=== PATIENT | female | born 1935 | race Caucasian/White ===

== ENCOUNTER → 2017-05-30 10:53 | Outpatient (CLI) | payer MEDICARE, SELFPAY ==
[2017-05-30 12:18] LABS: T4 Free Direct 1.59 ng/dL (0.76-1.46); Thyroid Stim Hormone (TSH) 0.02 uIU/mL (0.358-3.74)
[2017-05-31 10:31] LABS: T3 Total - Triiodothyronine 1.37 ng/mL (0.6-1.81)
== END ==
PROVIDERS: Family Provider Family Medicine; PCP Family Medicine; Visit Provider Family Medicine
DX: E03.9 Hypothyroidism, unspecified (principal)
CPT/HCPCS: 36415; 84439; 84443; 84480

== ENCOUNTER → 2017-06-15 13:05 | Outpatient (CLI) | payer MEDICARE, SELFPAY ==
[2017-06-15 13:49] LABS: Amphetamine Urine VISTA NEGATIVE (<1000 ng/mL); Barbiturate Urine VISTA NEGATIVE (< 200 ng/mL); Benzodiazepine Urine VISTA NEGATIVE (< 200 ng/mL); Cocaine Urine VISTA NEGATIVE (< 300 ng/mL); Ecstacy Urine VISTA NEGATIVE (< 500 ng/mL); Methadone Urine VISTA NEGATIVE (< 300 ng/mL); PCP Urine VISTA NEGATIVE (< 25 ng/mL); THC Urine VISTA NEGATIVE (< 50 ng/mL); Vista UDS pH Range 6
== END ==
PROVIDERS: Family Provider Family Medicine; PCP Family Medicine; Visit Provider Anesthesiology Pain Medicine
DX: F11.20 Opioid dependence, uncomplicated (principal)
CPT/HCPCS: 80307

== ENCOUNTER → 2017-11-30 11:46 | Outpatient (CLI) | payer MEDICARE, SELFPAY ==
[2017-11-30 16:03] LABS: T4 Free Direct 1.41 ng/dL (0.76-1.46); Thyroid Stim Hormone (TSH) 0.07 uIU/mL (0.358-3.74)
== END ==
PROVIDERS: Family Provider Family Medicine; PCP Family Medicine; Visit Provider Family Medicine
DX: E03.9 Hypothyroidism, unspecified (principal)
CPT/HCPCS: 36415; 84439; 84443

== ENCOUNTER → 2017-12-27 12:11 | Outpatient (CLI) | payer MEDICARE, SELFPAY ==
[2017-12-27 12:36] LABS: Erythrocyte Sedimentation Rate 12 mm/hr (0-30)
[2017-12-27 12:39] LABS: Absolute Lymphocyte Count 1.71 X10^3/ul (0.83-4.51); Absolute Neutrophil Count 4.8 X10^3/uL (2.0-7.7); Basophil# 0.04 X10^3/uL; Basophil% 0.5 % (0-1); Eosinophil# 0.18 X10^3/uL; Eosinophils% 2.5 % (0-5); Hematocrit 40.2 % (37-47); Hemoglobin 12.5 g/dl (12.0-15.0); Lymphocyte # 1.71 X10^3/ul (4.0); Lymphocyte % 23.4 % (19-41); Mean Corp Hgb Conc 31.1 g/gl (32-36); Mean Corpuscular Hgb 25.4 pg (27.0-32.0); Mean Corpuscular Volume 81.5 fL (81-99); Monocyte# 0.59 X10^3/uL; Monocyte% 8.1 % (0-10); Neutrophil # 4.76 X10^3/uL (2.7-7.7); Neutrophil % 65.2 % (47-70); POSITIVE COUNT NO; POSITIVE DIFFERENTIAL NO; POSITIVE MORPHOLOGY NO; Platelet Count 371 K/mm3 (150-450); RBC Distribution Width CV 17.3 % (11.6-14.6); RBC Distribution Width SD 51.1 fl (35.1-43.9); Red Blood Count 4.93 M/mm3 (4.2-5.4); White Blood Count 7.3 K/mm3 (4.4-11.0)
[2017-12-27 13:00] LABS: CRP < 2.90 mg/L (0.0-3.0)
== END ==
PROVIDERS: Family Provider Family Medicine; PCP Family Medicine; Referring Provider Orthopaedic Surgery; Visit Provider Orthopaedic Surgery
DX: M25.562 Pain in left knee (principal)
CPT/HCPCS: 36415; 85025; 85652; 86140

== ENCOUNTER → 2018-01-22 07:53 | Outpatient (CLI) | payer MEDICARE, SELFPAY ==
--- NOTE | 2018-01-22 08:04 | NM_ITS ---
CLINICAL: 82-year-old female with reported history of painful left knee arthroplasty operated 2015. LIMITED 99m Tc MDP THREE PHASE BONE SCINTIGRAPHY COMPARISON: None available FINDINGS: Following the intravenous administration of 24.9 mCi of 99m Tc MDP, three-phase bone acquisitions of the knee articulations reveal: 1. The flow and immediate static blood pool acquisitions demonstrate normal arterial phase distribution of the radiopharmaceutical. Subtle increased blood pool activity is noted in the medial tibial component of the left knee prosthesis. 2. Delayed images depict persistent increased radiopharmaceutical concentration noted in the medial tibial component of the left knee arthroplasty as well as visualized increased uptake identified in the medial femoral and lateral tibial components. 3. Facilitated uptake is identified in the patellofemoral compartments of both knees and medial tibial compartment of the right knee. 4. The remaining limited skeletal structures are scintigraphically unremarkable. NM/Bone Scan Three Phase IMPRESSION: 1. The increased radiopharmaceutical concentration defined in the femoral and tibial components of the symptomatic left knee prosthesis is consistent with a high likelihood of loosening in the setting of operative intervention > 2 years prior to the current presentation. If an infectious ideology is a diagnostic consideration, correlation with labeled leukocyte imaging is recommended. 2. Degenerative arthritis is otherwise expressed in the right knee and patellofemoral compartment of the left knee (in the absence of patellar hardware placement). Electronically Signed: Alvaro Meeks DO at 10:49 EST Tel , Service support ,
== END ==
PROVIDERS: Family Provider Family Medicine; PCP Family Medicine; Referring Provider Orthopaedic Surgery; Visit Provider Orthopaedic Surgery
DX: M51.36 Other intervertebral disc degeneration, lumbar region (principal); M54.5 Low back pain
CPT/HCPCS: 78315

== ENCOUNTER → 2018-02-13 10:43 | Outpatient (CLI) | payer MEDICARE, SELFPAY ==
[2018-02-13 11:53] LABS: T4 Free Direct 1.17 ng/dL (0.76-1.46); Thyroid Stim Hormone (TSH) 0.85 uIU/mL (0.358-3.74)
[2018-02-13 12:02] LABS: T3 Total - Triiodothyronine 1.28 ng/mL (0.6-1.81)
--- OUTSIDE RECORDS SUMMARY | 2018-04-01 11:31 | XMS RPT_ITS ---
:1935 Author Organization OHIP Care Team Providers Name Role Phone Poonamlillian Amy Attending Unavailable Amy Zavala Referring Unavailable Amy Zavala Consulting Unavailable Malys, Cristal Attending Unavailable Malys, Cristal Primary Care Unavailable Basali, Ayman Attending Unavailable Basali, Ayman Referring Unavailable Malys, Cristal Primary Care Unavailable Malys, Cristal Attending Unavailable Malys, Cristal Primary Care Unavailable Malys, Cristal Attending Unavailable Malys, Cristal Primary Care Unavailable Malys, Cristal Attending Unavailable Malys, Cristal Referring Unavailable Malys, Cristal Primary Care Unavailable Adrien Jett Attending Unavailable Adrien Jett Referring Unavailable Malys, Cristal Primary Care Unavailable Adrien Jett Attending Unavailable Sukumarys, Cristal Primary Care Unavailable Adrien Jett Referring Unavailable Purpose Purpose PROBLEMS PROBLEMS DATE TYPE CONDITION / CODE ATTENDING STATUS SOURCE 02/13/2018 Unknown E03.9 - Malys, Cristal Active [facility] Hypothyroidism, Community unspecified / Hospital E03.9(ICD-10) Repository 12/27/2017 Unknown M25.562 - Pain in KnapAdrien malhotra Active [facility] left knee / Community M25.562(ICD-10) Hospital Repository 06/15/2017 Unknown F11.20 - Opioid BasaliNadja Active Andre dependence, Community uncomplicated / Hospital F11.20(ICD-10) Repository PROCEDURES PROCEDURES No Procedure Records FoundVITAL SIGNS VITAL SIGNS No Vital Signs Records FoundRESULTS RESULTS THYROID STIM HORMONE Collected: 02/13/2018 Status: F Source: ANDRE (TSH) 10:48 AM [facility] REPOSITORY TYPE CODE TESTS RESULT OUT OF RANGE REFERENCE UNITS LAB L501.9520 0.358-3.74 uIU/mL Normal TSH 0.85 Performed By: #### L501.9520, L506.0400 #### [facility] [address] [place], [address] T4 FREE DIRECT Collected: 02/13/2018 Status: F Source: ANDRE 10:48 AM [facility] REPOSITORY TYPE CODE TESTS RESULT OUT OF RANGE REFERENCE UNITS LAB L506.0400 0.76-1.46 ng/dL Normal T4 FREE 1.17 DIRECT Performed By: #### L501.9520, L506.0400 #### [facility] [address] [place], [address] T3 TOTAL - TRIIODOTHYRONINE Collected: 02/13/2018 Status: F Source: ANDRE 10:48 AM [facility] REPOSITORY TYPE CODE TESTS RESULT OUT OF RANGE REFERENCE UNITS LAB L501.9186 0.6-1.81 ng/mL Normal T3 Total 1.28 Performed By: #### L501.9186 #### [facility] [address] [place], [address] BONE SCAN THREE Observed: 01/22/2018 Status: F Source: ANDRE PHASE 8:04 AM [facility] REPOSITORY [facility] Services [address] [place] [address] Bone Scan Three Phase MR#: [id number] Acct: [id number] Name: MAURO LIEBERMAN #: [id number] : 1935 F 82 From: Alvaro Meeks DO PCP: Cristal Nguyen DO Status: REG CLI Study: Bone Scan Three Phase Date of Exam: 01/22/18 Exam# [id number] Ordering Dr: Adrien Jett DO CLINICAL: 82-year-old female with reported history of painful left knee arthroplasty operated 2014. LIMITED 99m Tc MDP THREE PHASE BONE SCINTIGRAPHY COMPARISON: None available FINDINGS: Following the intravenous administration of 24.9 mCi of 99m Tc MDP, three-phase bone acquisitions of the knee articulations reveal: 1. The flow and immediate static blood pool acquisitions demonstrate normal arterial phase distribution of the radiopharmaceutical. Subtle increased blood pool activity is noted in the medial tibial component of the left knee prosthesis. 2. Delayed images depict persistent increased radiopharmaceutical concentration noted in the medial tibial component of the left knee arthroplasty as well as visualized increased uptake identified in the medial femoral and lateral tibial components. 3. Facilitated uptake is identified in the patellofemoral compartments of both knees and medial tibial compartment of the right knee. 4. The remaining limited skeletal structures are scintigraphically unremarkable. NM/Bone Scan Three Phase IMPRESSION: 1. The increased radiopharmaceutical concentration defined in the femoral and tibial components of the symptomatic left knee prosthesis is consistent with a high likelihood of loosening in the setting of operative intervention > 2 years prior to the current presentation. If an infectious ideology is a diagnostic consideration, correlation with labeled leukocyte imaging is recommended. 2. Degenerative arthritis is otherwise expressed in the right knee and patellofemoral compartment of the left knee (in the absence of patellar hardware placement). Electronically Signed: Alvaro Meeks DO at 10:49 EST Tel , Service support , CC: Cristal Nguyen; Cristal Nguyen DO; Adrien Jett DO Extension Associate: Signed ERYTHROCYTE SED RATE Collected: 12/27/2017 Status: F Source: ANDRE 12:16 PM [facility] REPOSITORY TYPE CODE TESTS RESULT OUT OF RANGE REFERENCE UNITS LAB L102.0000 0-30 mm/hr Normal SED RATE 12 Performed By: #### L101.9900, L100.0100 #### [facility] [address] [place], [place], [address] CBC W/DIFF, AUTOMATED Collected: 12/27/2017 Status: F Source: ANDRE 12:16 PM [facility] REPOSITORY TYPE CODE TESTS RESULT OUT OF RANGE REFERENCE UNITS LAB L100.1000 4.4-11.0 K/mm3 Normal WBC 7.3 LAB L100.1200 4.2-5.4 M/mm3 Normal RBC 4.93 LAB L100.1300 12.0-15.0 g/dl Normal HGB 12.5 LAB L100.1400 37-47 % Normal HCT 40.2 LAB L100.1500 81-99 fL Normal MCV 81.5 LAB L100.1600 27.0-32.0 pg Low MCH 25.4 LAB L100.1700 32-36 g/gl Low MCHC 31.1 LAB L100.1810 11.6-14.6 % High RDW CV 17.3 LAB L100.1820 35.1-43.9 fl High RDW SD 51.1 LAB L100.1900 150-450 K/mm3 Normal PLT 371 LAB L100.2000 6.2-12.0 fl Normal MPV 9.0 LAB L100.2100 47-70 % Normal NEUT% 65.2 LAB L100.2200 19-41 % Normal LY% 23.4 LAB L100.2300 0-10 % Normal MONO% 8.1 LAB L100.2400 0-5 % Normal EO% 2.5 LAB L100.2500 0-1 % Normal BASO% 0.5 LAB L100.2550 0.0-0.9 % Normal IM GRAN % 0.300 Result Comment: IG% - Immature Granulocytes (promyelocytes, myelocytes and metamyelocytes) > 1% indicates that a LEFT SHIFT is Present. LAB L100.2620 2.0-7.7 X10 3/uL Normal Absolute Neut 4.8 LAB L100.2720 0.83-4.51 X10 3/ul Normal Absolute Lymph 1.71 Performed By: #### L101.9900, L100.0100 #### [facility] [address] [place], [place], [address] CRP Collected: 12/27/2017 Status: F Source: ANDRE 12:16 PM [facility] REPOSITORY TYPE CODE TESTS RESULT OUT OF RANGE REFERENCE UNITS LAB L501.6710 0.0-3.0 mg/L Normal < 2.90 C-REACTIVE PROT Result Comment: C-Reactive Protein (CRP) provides useful information for the diagnosis, therapy and monitoring of inflammatory processes and associated diseases. For the evaluation of Relative Risk for Cardiovascular Disease, a High Sensitivity CRP (HSCRP) should be ordered. Performed By: #### L501.6710 #### [facility] [address] [place], [address] THYROID STIM HORMONE Collected: 11/30/2017 Status: F Source: ANDRE (TSH) 11:49 AM [facility] REPOSITORY TYPE CODE TESTS RESULT OUT OF RANGE REFERENCE UNITS LAB L501.9520 0.358-3.74 uIU/mL Low TSH 0.07 Performed By: #### L501.9520, L506.0400 #### [facility] [address] [place], [address] T4 FREE DIRECT Collected: 11/30/2017 Status: F Source: ANDRE 11:49 AM [facility] REPOSITORY TYPE CODE TESTS RESULT OUT OF RANGE REFERENCE UNITS LAB L506.0400 0.76-1.46 ng/dL Normal T4 FREE 1.41 DIRECT Performed By: #### L501.9520, L506.0400 #### [facility] [address] [place], [address] URINE DRUG SCREEN Collected: 06/15/2017 Status: F Source: ANDRE (VISTA) 1:21 PM [facility] REPOSITORY Order Comment: Comments: [id number] URINE DRUG List of Drugs Taken or Suspected? UNK TYPE CODE TESTS RESULT OUT OF RANGE REFERENCE UNITS LAB L505.0075 TO BE Normal CONFIRMED Result Comment: CONFIRMATORY TESTING FOR ALL POSITIVE URINE DRUG SCREEN RESULTS WILL ONLY BE SENT OUT UPON PHYSICIAN ORDER. VISTA Urine Drug Screen methods provide only preliminary analytical test results. A more specific alternate chemical method must be used in order to obtain a confirmed analytical result. Gas chromatography/mass spectrometery (GC/MS) is the preferred confirmatory method. Clinical consideration and professional judgement should be applied to any drug of abuse test result, particularly when preliminary positive results are used. URINE TCA TESTING MUST BE ORDERED SEPARATELY. USE TEST MNEMONIC: [facility] LAB L505.5005 VISTA UDS PH 6 Normal LAB L505.5015 <1000 ng/mL AMPHETAMINES Normal NEGATIVE LAB L505.5025 < 200 ng/mL BARBITIURATES Normal NEGATIVE LAB L505.5035 < 200 ng/mL BENZODIAZIPINE Normal NEGATIVE LAB L505.5045 < 300 ng/mL COCAINE Normal NEGATIVE LAB L505.5055 < 500 ng/mL ECSTACY Normal NEGATIVE LAB L505.5065 < 300 ng/mL METHADONE Normal NEGATIVE LAB L505.5075 < 300 ng/mL OPIATES Normal NEGATIVE LAB L505.5085 < 25 ng/mL PCP Normal NEGATIVE LAB L505.5095 < 50 ng/mL THC Normal NEGATIVE Performed By: #### L505.5000 #### [facility] [address] [place], [address] MISCELLANEOUS LAB Collected: 06/15/2017 Status: F Source: ANDRE PROCEDURE 1:21 PM [facility] REPOSITORY Order Comment: Comments: [id number] URINE DRUG Test(s) Ordered: 006322 URINE DRUG TYPE CODE TESTS RESULT OUT OF RANGE REFERENCE UNITS LAB L801.1541 Normal [facility] LAB TEST Result Comment: TEST RESULT UNITS REF INTERVAL [id number] 6+Oxycodone-Bund Amphetamines, Urine Negative ng/mL Gvaove=1104 Amphetamine test includes Amphetamine and Methamphetamine. Barbiturate Negative ng/mL Rzlspt=058 Benzodiazepines Negative ng/mL Pskaiu=510 Cannabinoids Negative ng/mL Cutoff=20 Cocaine (Metabolite) Negative ng/mL Jwzaot=286 Opiates Negative ng/mL Wzkmjb=291 Opiate test includes Codeine, Morphine, Hydromorphone, Hydrocodone. Please Note: Confirmation performed by Mass Spectrometry Oxycodone/Oxymorph Positive Bsjixu=505 Test includes Oxycodone and Oxymorphone Oxycodone Positive Oxycodone (GC/MS) 454 ng/mL Fvmqzh=293 Oxymorphone Positive Oxymorphone (GC/MS) 1110 ng/mL Mcfagh=023 TESTING PERFORMED AT [facility]. ORIGINAL REPORT ON FILE IN LAB CONTAINS ADDITIONAL TEST SITE INFORMATION. Performed By: #### L801.1541 #### [facility] [address] [place], [address] THYROID STIM HORMONE Collected: 05/30/2017 Status: F Source: ANDRE (TSH) 10:54 AM [facility] REPOSITORY TYPE CODE TESTS RESULT OUT OF RANGE REFERENCE UNITS LAB L501.9520 0.358-3.74 uIU/mL Low TSH 0.02 Performed By: #### L501.9520, L506.0400 #### [facility] [place], [address] T4 FREE DIRECT Collected: 05/30/2017 Status: F Source: CHELSEA 10:54 AM [facility] REPOSITORY TYPE CODE TESTS RESULT OUT OF REFERENCE UNITS RANGE LAB L506.0400 0.76-1.46 ng/dL High T4 FREE 1.59 DIRECT Performed By: #### L501.9520, L506.0400 #### [facility] [address] [place], [address] T3 TOTAL - TRIIODOTHYRONINE Collected: 05/30/2017 Status: F Source: CHELSEA 10:54 AM [facility] REPOSITORY TYPE CODE TESTS RESULT OUT OF RANGE REFERENCE UNITS LAB L501.9186 0.6-1.81 ng/mL Normal T3 Total 1.37 Performed By: #### L501.9186 #### [facility] [address] [place], [address] ALLERGIES ALLERGIES DATE TYPE / CODE NAME / CODE REACTION SEVERITY SOURCE 07/03/2014 Drug Penicillins/ Rash Unknown [facility] Allergy/4160 [id number]( Hospital 35545(SNOMED XNORM) Repository CT) 07/03/2014 Drug codeine/F006 Upset Stomach Unknown [facility] Allergy/4160 378747(RXNOR [facility] 63426(SNOMED M) Repository CT) ENCOUNTERS ENCOUNTERS ADMIT/DISCHARGE ACCOUNT ADMITTING ENCOUNTER LOCATION SOURCE NUMBER CLASS 03/20/2018 [id number] Ambulatory Building:[facility] OHIP Practices Repository 02/13/2018 [id number] Ambulatory Christmas Andre 4 [facility] ing:LAB.FUTUR Repository E 01/22/2018 [id number] Ambulatory Christmas Andre 9 [facility] ing:NM Repository 12/27/2017 [id number] Ambulatory Andre Christmas 8 [facility] ing:LAB Repository 11/30/2017 [id number] Ambulatory Christmas Andre 9 [facility] ing:BFHLAB Repository 11/27/2017 [id number] Ambulatory Christmas Christmas 7 [facility] ing:LAB.FUTUR Repository E 06/15/2017 [id number] Ambulatory Christmas Andre 3 [facility] ing:LAB Repository 05/30/2017 [id number] Ambulatory Andre Andre 6 [facility] ing:LAB.FUTUR Repository E FUNCTIONAL STATUS FUNCTIONAL STATUS No Functional Status Records FoundEQUIPMENT EQUIPMENT No Equipment Records FoundPAYERS PAYERS ENCOUNTER GUARANTOR PAYER SUBSCRIBER SOURCE 03/20/2018 Mauro Finch Primary Mauro Finch [place] Practices SchmitzDOB: [facility] [id number] [facility] Number: [id number] [address] [place], [place] [address]ive [place], [place] [address]Lqm: (563) Date:7053-09-63Xrtb 556[address]Joy: Name:KRISSY POTTER [phone] () ()Tel: [phone] 27994[facility]Pe[facility] [phone] () [place] [id number]: 03/20/2018 Secondary Jonelle Livingston [place] Practices Insurance:Health SchmitzDOB: Repository [facility] [id number] Number: 6 Mervat [id number] [place], [place] Date:2008-05-0494471Owt: [phone] [id number] [phone] (HP) Name:RASHAD Potter [address]GB NOT USE, [place], [place] [address]AS: 03/20/2018 [facility] Insurance:Medical SchmitzDOB: Repository [facility] [id number] Number: 6 Mervat [id number] [place], [place] Date: [address]Rad: [phone] [id number] [phone] (HP) Name:[facility] Tariq [address]Qszqshkpc, [place] [id number]: 03/20/2018 [facility] Insurance:Medical SchmitzDOB: Repository [facility] [id number] Number: 6 Mervat [id number] [place], [place] Date:2015-03-06 [address]Szv: [phone] [id number] [phone] (HP) Name:[facility] Tariq [address]Drbwgbkfx, [place] [id number]: 02/13/2018 MAURO Powell [id number] Insurance:[employer] SCHMITZDOB: Community MCNUTT MEDICAREPolicy [id number] Number: Repository [address]Pnr: [phone]) [id number] [phone] (HP) Date:7742-50-10QZ [address] [place] [address]AA: 02/13/2018 Secondary NOT GIVENUNK Christmas Insurance:SELF PAY [facility] Number: Effective Repository Date:2017-12-04 01/22/2018 MAURO Finch Primary MAURO Powell [id number] Insurance:[employer] CARE SCHMITZDOB: Community MCNUTT MEDICAREPolicy [id number], [place] Number: Repository [address]Kja: [phone] [id number] [phone] (HP) Date:1232-73-23NA [address], [place] [address]KD: 01/22/2018 Secondary NOT GIVENUNK Christmas Insurance:SELF PAY [facility] Number: Effective Repository Date:2018-01-16 12/27/2017 MAURO Finch Primary MAURO Finch Andre [id number] Insurance:[employer] CARE SCHMITZDOB: Community MCNUTT MEDICAREPolicy [id number], [place] Number: Repository [id number]: (330) [id number] [phone] (HP) Date:9782-75-10RV [address] [place] [address]WU: 12/27/2017 Secondary NOT GIVENUNK Andre Insurance:SELF PAY [facility] Number: Effective Repository Date:2017-12-27 11/30/2017 MAURO Finch Primary MAURO Powell [id number] Insurance:[employer] CARE SCHMITZDOB: Community MCNUTT MEDICAREPolicy [id number], [place] Number: Repository [phone]: (330) [id number] [phone] (HP) Date:7437-70-01FT [address] [place] [address]OF: 11/30/2017 Secondary NOT GIVENUNK Christmas Insurance:SELF PAY [facility] Number: Effective Repository Date:2017-11-30 11/27/2017 JONELLE Living[place] Primary MAURO Finch Andre [id number] Insurance:[employer] CARE SCHMITZDOB: Community MCNUTT MEDICAREPolicy [id number], [place] Number: Repository [phone]: (330) [id number] [phone] (HP) Date:0514-29-48CY [address] [place] [address]MI: 11/27/2017 Secondary NOT GIVENUNK [place] Insurance:SELF PAY [facility] Number: Effective Repository Date:2017-11-27 06/15/2017 JONELLE [place] Primary MAURO M Andre [id number] Insurance:[facility]ITALPAULETTEDOB: Community MCNUTT MEDICAREPolicy [id number], [place] Number: Repository [address]Ukk: 330 [id number] [phone] (HP) Date:4945-71-45TR [address] [place] [address]VV: 06/15/2017 Secondary NOT GIVENUNK Christmas Insurance:SELF PAY [facility] Number: Effective Repository Date:2017-06-15 05/30/2017 JONELLE [place] Primary MAURO SASKIAB: Christmas [id number] Insurance:[facility] [id number] Community [place] MED[facility] Number: Repository [address]Yec: 330 [id number] [phone] (HP) Date:5410-93-85KB [address] [place] [address]SO: 05/30/2017 Secondary NOT GIVENUNK Andre Insurance:SELF PAY [facility] Number: Effective Repository Date:2017-05-29 SOCIAL HISTORY SOCIAL HISTORY No Social History Records FoundFAMILY HISTORY FAMILY HISTORY No Family History Records FoundADVANCE DIRECTIVES ADVANCE DIRECTIVES No Advanced Directives Records FoundINFORMATION SOURCE INFORMATION SOURCE DATE CREATED AUTHOR AUTHOR'S ORGANIZATION 03/28/2018 YRAN
== END ==
PROVIDERS: Family Provider Family Medicine; PCP Family Medicine; Referring Provider Family Medicine; Visit Provider Family Medicine
DX: E03.9 Hypothyroidism, unspecified (principal)
CPT/HCPCS: 36415; 84439; 84443; 84480

== ENCOUNTER → 2018-05-14 12:11 | Outpatient (CLI) | payer MEDICARE, SELFPAY ==
[2018-05-14 13:15] LABS: Amphetamine Urine VISTA NEGATIVE (<1000 ng/mL); Barbiturate Urine VISTA NEGATIVE (< 200 ng/mL); Benzodiazepine Urine VISTA NEGATIVE (< 200 ng/mL); Cocaine Urine VISTA NEGATIVE (< 300 ng/mL); Ecstacy Urine VISTA NEGATIVE (< 500 ng/mL); Methadone Urine VISTA NEGATIVE (< 300 ng/mL); PCP Urine VISTA NEGATIVE (< 25 ng/mL); THC Urine VISTA NEGATIVE (< 50 ng/mL); Vista UDS pH Range 5
== END ==
PROVIDERS: Family Provider Family Medicine; PCP Family Medicine; Referring Provider Anesthesiology Pain Medicine; Visit Provider Anesthesiology Pain Medicine
DX: F11.20 Opioid dependence, uncomplicated (principal)
CPT/HCPCS: 80307

== ENCOUNTER → 2019-05-15 16:26 | Outpatient (CLI) | payer MEDICARE, SELFPAY ==
[2019-05-15 17:27] LABS: Amphetamine Urine VISTA NEGATIVE (<1000 ng/mL); Barbiturate Urine VISTA NEGATIVE (< 200 ng/mL); Benzodiazepine Urine VISTA NEGATIVE (< 200 ng/mL); Cocaine Urine VISTA NEGATIVE (< 300 ng/mL); Ecstacy Urine VISTA NEGATIVE (< 500 ng/mL); Methadone Urine VISTA NEGATIVE (< 300 ng/mL); PCP Urine VISTA NEGATIVE (< 25 ng/mL); THC Urine VISTA NEGATIVE (< 50 ng/mL); Vista UDS pH Range 6
== END ==
PROVIDERS: PCP Nurse Practitioner; Referring Provider Anesthesiology Pain Medicine; Visit Provider Anesthesiology Pain Medicine
DX: F11.20 Opioid dependence, uncomplicated (principal)
CPT/HCPCS: 80307

== ENCOUNTER → 2019-07-22 10:37 | Outpatient (CLI) | payer MEDICARE, SELFPAY ==
--- NOTE | 2019-07-22 10:50 | RAD_ITS ---
STUDY: X-RAY - SACRUM/COCCYX REASON FOR EXAM: Female, 84 years old. pt. fell last TECHNIQUE: 2 view(s) of the sacrum and coccyx were obtained. COMPARISON: None. FINDINGS: Normal bilateral sacroiliac joints. Normal visualized sacral ala and fused sacral bodies. Normal sacrococcygeal junction with a normal angulation. Normal coccygeal segments. The presacral soft tissue structures are unremarkable. RAD/Sacrum-Coccyx min 2 Views IMPRESSION: Normal x-rays of the sacrum and coccyx. Electronically Signed: Everett Najera MD at 17:15 EDT , Service support ,
== END ==
PROVIDERS: PCP Nurse Practitioner; Referring Provider Anesthesiology Pain Medicine; Visit Provider Anesthesiology Pain Medicine
DX: M53.3 Sacrococcygeal disorders, not elsewhere classified (principal)
CPT/HCPCS: 72220

== ENCOUNTER → 2019-11-20 15:25 | Outpatient (CLI) | payer MEDICARE, SELFPAY ==
--- NOTE | 2019-11-20 15:38 | MRI_ITS ---
STUDY: MRI LUMBAR SPINE WITHOUT CONTRAST REASON FOR EXAM: Female, 84 years old. low back pain into R leg -- chronic pain with recent falls TECHNIQUE: Standardized fat and water weighted pulse sequences were obtained in the sagittal and axial planes. COMPARISON: 12/24/2014 FINDINGS: T12-L1: Normal endplates. Normal disc height, hydration and morphology. Normal bilateral facet joints. Normal central canal and bilateral lateral recesses. Normal bilateral intervertebral neural foramina. Normal lumbar lordosis. Mild levoscoliosis centered at L4. Normal conus medullaris that terminates at the L1/L2. L1-2: Normal endplates. Normal disc height, hydration and morphology. Normal bilateral facet joints. Normal central canal and bilateral lateral recesses. Normal bilateral intervertebral neural foramina. L2-3: Mild bilateral facet hypertrophy and moderate ligament flavum hypertrophy. No change in the mild bilobed disc protrusion which produces mild spinal stenosis and mild bilateral neural foraminal stenosis. L3-4: Mild bilateral facet hypertrophy and moderate ligament flavum hypertrophy. No change in the mild bilobed disc osteophyte complex which produces mild spinal stenosis and mild bilateral neural foraminal stenosis. L4-5: Mild bilateral facet hypertrophy and moderate ligament flavum hypertrophy. No change in the mild bilobed disc osteophyte complex which produces a mild spinal stenosis, mild left neural foraminal stenosis and moderate right neural foraminal stenosis with abutment of the right L4 nerve root laterally. L5-S1: Mild bilateral facet hypertrophy and ligament flavum hypertrophy. No change in the mild broad disc protrusion which produces mild spinal stenosis and mild bilateral neural foraminal stenosis. Normal visualized sacral ala. Normal visualized paraspinous soft tissue structures. MRI/Spine Lumbar (Routine) IMPRESSION: No change from 12/24/2014 Electronically Signed: Alvaro Brunson MD at 17:27 EDT Tel , Service support ,
== END ==
PROVIDERS: PCP Nurse Practitioner; Referring Provider Anesthesiology Pain Medicine; Visit Provider Anesthesiology Pain Medicine
DX: M54.9 Dorsalgia, unspecified (principal); M79.606 Pain in leg, unspecified
CPT/HCPCS: 72148

== ENCOUNTER 2020-04-03 10:50 | Outpatient (RCR) | payer MEDICARE, SELFPAY | END 2020-04-03 23:59 | LOC: IMMUN 10:50 | PROVIDERS: PCP Nurse Practitioner; Referring Provider Family Medicine; Visit Provider Family Medicine | DX: Z23 Encounter for immunization (principal) | CPT/HCPCS: 0011A; 0012A; 91301 ==

== ENCOUNTER 2021-03-24 12:55 | Outpatient (CLI) | payer MEDICARE, SELFPAY ==
[2021-03-24 14:00] LABS: Amphetamine Urine VISTA NEGATIVE (<1000 ng/mL); Barbiturate Urine VISTA NEGATIVE (< 200 ng/mL); Benzodiazepine Urine VISTA NEGATIVE (< 200 ng/mL); Cocaine Urine VISTA NEGATIVE (< 300 ng/mL); Ecstacy Urine VISTA NEGATIVE (< 500 ng/mL); Methadone Urine VISTA NEGATIVE (< 300 ng/mL); PCP Urine VISTA NEGATIVE (< 25 ng/mL); THC Urine VISTA NEGATIVE (< 50 ng/mL); Vista UDS pH Range 5
== END 2021-03-24 23:59 | disposition short-term general hospital (02) ==
PROVIDERS: PCP Nurse Practitioner; Referring Provider Anesthesiology Pain Medicine; Visit Provider Anesthesiology Pain Medicine
DX: F11.20 Opioid dependence, uncomplicated (principal)
CPT/HCPCS: 80307

== ENCOUNTER → 2021-12-28 | Outpatient (CLI) | payer MEDICARE, SELFPAY ==
--- NOTE | 2021-12-28 12:33 | RAD_ITS ---
STUDY: X-RAY - CERVICAL SPINE REASON FOR EXAM: Female, 86 years old. Other cervical disc degeneration, unspecified cervical region TECHNIQUE: 2 view(s) of the cervical spine were obtained. COMPARISON: None FINDINGS: Normal anterior atlantoaxial articulation. Normal odontoid process. Normal cervical lordosis. Normal vertebral bodies and endplates. Focal disc space narrowing and osteophyte formation at C4/C5 with 2 mm retrolisthesis of C4 on C5. Normal visualized intervertebral neuroforamina. The soft tissue structures are unremarkable. RAD/Cerv Spine 2 or 3 Views IMPRESSION: Focal degenerative disc disease at C4/C5 a 2 mm retrolisthesis of C4 on C5. MRI would be useful. Electronically Signed: Alvaro Brunson MD at 13:01 EDT ,
== END | disposition home or self-care (01) ==
PROVIDERS: PCP Nurse Practitioner Family; Referring Provider Anesthesiology Pain Medicine; Visit Provider Anesthesiology Pain Medicine
DX: M50.30 Other cervical disc degeneration, unspecified cervical region (principal)
CPT/HCPCS: 72040

== ENCOUNTER → 2022-01-17 | Outpatient (CLI) | payer MEDICARE, SELFPAY ==
--- NOTE | 2022-01-17 12:35 | MRI_ITS ---
STUDY: MRI CERVICAL SPINE WITHOUT CONTRAST REASON FOR EXAM: Female, 86 years old. RADICULOPATHY TECHNIQUE: Standardized fat and water weighted pulse sequences were obtained in the sagittal and axial planes. COMPARISON: None FINDINGS: Normal foramen magnum and brainstem-cervical cord junction. Normal craniovertebral junction. Normal anterior atlantoaxial articulation. Normal odontoid process. Normal cervical lordosis. Normal vertebral bodies and posterior osseous elements. C2-3: Normal endplates. Normal disc height, signal and morphology. Normal central canal and intervertebral neural foramina. C3-4: Normal endplates. Normal disc height, signal and minor diffuse osteophytic ridging with small right foraminal disc/osteophyte protrusion. Normal central canal. Mild left neuroforaminal stenosis and severe narrowing on the right. C4-5: Grade 1 retrolisthesis and mild anterior endplate spurring. There is narrowing of the disc space and mild bulging disc osteophyte complex in association with right paracentral/posterolateral disc protrusion mildly narrowing the spinal canal and impinging upon the cord. Moderate to severe left neuroforaminal stenosis secondary to bony hypertrophy and more severe narrowing on the right secondary to disc and bony hypertrophy... C5-6: Mildly narrowed disc space and anterior endplate spurring.. Minor bulging disc osteophyte complex and small left foraminal disc/osteophyte protrusion. Normal central canal. Mild right neuroforaminal encroachment and more severe narrowing on the left secondary to bony hypertrophy C6-7: Minor anterior endplate spurring.. Normal disc height, signal and tiny central disc protrusion. Normal central canal and intervertebral neural foramina. C7-T1: Normal endplates. Normal disc height, signal and morphology. Normal central canal and intervertebral neural foramina. Normal cervical cord. Normal visualized soft tissue structures. MRI/Spine Cervical (Routine) IMPRESSION: No evidence for acute fracture or other significant bony pathology. Multilevel spinal stenosis secondary to disc disease and bony hypertrophy most severe on the right at C3-4 and C4-5 and more severe narrowing on the left at C6-7 Electronically Signed: Zechariah Mace MD at 17:17 EST ,
== END | disposition home or self-care (01) ==
LOC: MRI 12:33
PROVIDERS: PCP Nurse Practitioner Family; Referring Provider Anesthesiology Pain Medicine; Visit Provider Anesthesiology Pain Medicine
DX: M54.12 Radiculopathy, cervical region (principal)
CPT/HCPCS: 72141

== ENCOUNTER → 2022-06-29 | Outpatient (CLI) | payer MEDICARE, SELFPAY ==
[2022-06-29 14:10] LABS: Amphetamine Urine VISTA NEGATIVE (<1000 ng/mL); Barbiturate Urine VISTA NEGATIVE (< 200 ng/mL); Benzodiazepine Urine VISTA NEGATIVE (< 200 ng/mL); Cocaine Urine VISTA NEGATIVE (< 300 ng/mL); Ecstacy Urine VISTA NEGATIVE (< 500 ng/mL); Methadone Urine VISTA NEGATIVE (< 300 ng/mL); PCP Urine VISTA NEGATIVE (< 25 ng/mL); THC Urine VISTA NEGATIVE (< 50 ng/mL); Vista UDS pH Range 6
== END | disposition home or self-care (01) ==
PROVIDERS: PCP Nurse Practitioner Family; Referring Provider Anesthesiology Pain Medicine; Visit Provider Anesthesiology Pain Medicine
DX: F11.20 Opioid dependence, uncomplicated (principal)
CPT/HCPCS: 80307

== ENCOUNTER 2023-04-26 11:50 | Emergency (ER) | payer MEDICARE, SELFPAY ==
[2023-04-26 11:51] VITALS: BP 201/70; PULSE 87; RESP 16; TEMP 36.2; O2SAT 100; BMI 35.6
--- NOTE | 2023-04-26 12:41 | EKG12_ITS ---
Test Reason : TACHY Blood Pressure : / mmHG Vent. Rate : 080 BPM Atrial Rate : 080 BPM P-R Int : 180 ms QRS Dur : 078 ms QT Int : 376 ms P-R-T Axes : 060 -22 052 degrees QTc Int : 433 ms Normal sinus rhythm Minimal voltage criteria for LVH, may be normal variant ( R in aVL ) Septal infarct , age undetermined Abnormal ECG Confirmed by LINDA ROUSE, TRINIDAD ([id number]), visual effects editor SUZETTE CHAND ([id number]) on 04/27/2023 8:24:40 AM Referred By: Junior Saunders Confirmed By:TRINIDAD MCKEON MD
--- NOTE | 2023-04-26 12:47 | EDS_ITS ---
HPI History of Present Illness Chief Complaint: Palpitations Informant: patient Onset/Context/Timing Onset: Weeks Activity at onset: gradual Timing: Intermittent Current Severity: Gone Maximum Severity: Mild Associated Symptoms: Negative for Nausea, Vomiting, Diaphoresis, Dyspnea, Cough, Fever, Lightheadedness, Acid Reflux or Palpitations Narrative Narrative: 88-year-old female no past cardiac medical history. States she has had palpitations elevated heart rate for the last 2 weeks. She [facility] do a blood draw they told her pulse was too high and she could not donate blood. She then went to [facility] another day it was elevated then also. They told her to follow that up. She denies any chest pain. She denies any shortness of breath. She denies any recent illness. She does have hypothyroidism has been taking her medication. She has no history of an abnormal cardiac rhythm. Prior Similar Symptoms: No Recent Illness/Hospitalization: No CVD Risk Factors: Negative for Hypertension or Diabetes PE Risk Factors: Negative for Recent Travel/Surgery, Recent Immobilization, Prior DVT or PE, Cancer or OCP + Smoking + >/=35 TAD Risk Factors: Negative for Marfan's Syndrome PFSH PFSH Home Medications Ibuprofen [Motrin] 800 mg PO DAILY PRN PRN Pain 07/03/14 [History Last Taken Unknown] aluminum-mag hydroxide-simethicone 400 mg-400 mg-40 mg/5 mL oral susp (Mag-Al Plus Extra Strength) 15 ml PO Q4H PRN PRN Indigestion 07/03/14 [History Last Taken Unknown] calcium carbonate 200 mg calcium (500 mg) chewable tablet 500 mg PO BIDCM 07/03/14 [History Last Taken Unknown] cyanocobalamin (vitamin B-12) 1,000 mcg/mL injection solution 100 mcg IM Q30D 07/03/14 [History Last Taken Unknown] diphenhydramine HCl 25 mg capsule (Banophen) 25 mg PO QHS 07/03/14 [History Last Taken Unknown] fentanyl 12 mcg/hr transdermal patch 12 mcg TRANSDERM. Q3D 07/03/14 [History Last Taken Unknown] melatonin 5 mg tablet 5 mg PO QHS 07/03/14 [History Last Taken Unknown] pediatric multivit 22-vit D3 1,000 unit-vit K 800 mcg chewable tablet (Chewables Multivitamins-A,B,D,E,K,Zn) 1 ea PO BID 07/03/14 [History Last Taken Unknown] enoxaparin 30 mg/0.3 mL subcutaneous syringe 30 mg (0.3 mL) subcut DAILY@0600 ##7 07/23/14 [Rx Last Taken Unknown] oxycodone-acetaminophen 5 mg-325 mg tablet 1 tab PO Q4H PRN PRN PAIN ##30 07/23/14 [Rx Last Taken Unknown] sennosides 8.6 mg-docusate sodium 50 mg tablet (Stool Softener-Stimulant Laxative) 1 tab PO DAILY ##0 07/23/14 [Rx Last Taken Unknown] levothyroxine 100 mcg tablet 100 mcg PO DAILY@0600 ##30 07/24/14 [Rx Last Taken Unknown] Allergy/AdvReac Type Severity Reaction Status Date / Time Penicillins Allergy Rash Verified 07/03/14 10:15 codeine AdvReac Upset Verified 07/03/14 10:15 Stomach Social History Smoking Status: Never smoker ROS ROS ED ROS Narrative Palpitations and accelerated heart rate. No chest pain or shortness of breath. Review of Systems ROS Unobtainable: Denies due to encephalopathy Constitutional Constitutional ED: Denies chills or fever(s) Eyes Eyes: Reports none ENT ENT ED: Denies ear pain Cardiovascular Cardiovascular: Reports palpitations and racing heartbeat; Denies as per HPI or chest pain Respiratory/Chest Respiratory/Chest: Denies cough or dyspnea Gastrointestinal Gastrointestinal: Denies abdominal pain, constipation, diarrhea, melena, nausea or vomiting Genitourinary Genitourinary ED: Denies dysuria or hematuria Musculoskeletal Musculoskeletal: Denies arthralgias Integumentary Denies abscess Neurologic Neurologic: Denies headache(s) Psychiatric Psychiatric: Denies anxiety or depression Endocrine Endocrinology: Denies cold intolerance Hematologic/Lymphatic Hematologic/Lymphatic: Denies easy bleeding Allergic/Immunologic Allergic/Immunologic ED: Denies mouth swelling, tongue swelling or urticaria EXAM Physical Exam Narrative Exam Narrative: Well-appearing 88-year-old female. Vital signs are stable afebrile. Pulse ox 100% on room air no signs hypoxia. H EENT exam normal. Neck nontender no JVD. No thyromegaly. Lungs clear to auscultation bilaterally. Heart regular rate rate about 80. 3/6 systolic ejection murmur. She has a history of a murmur. Chest wall nontender. Abdomen soft nontender. Moving all 4 extremities. Equal symmetrical radial pulses. Calves are nontender without edema or cords. Neurologically she is awake alert no focal motor deficits. Clinically she looks well. No distress. Const Vital Signs: 04/26/23 11:51 04/26/23 13:05 04/26/23 13:05 Temperature 97.1 F L Temperature Source Temporal Pulse Rate 87 68 Respiratory Rate 16 12 Respiratory Effort Blood Pressure 201/70 H Blood Pressure Mean 113 Pulse Ox 100 100 Oxygen Delivery Method Room Air Room Air Room Air 04/26/23 13:05 04/26/23 14:10 Temperature Temperature Source Pulse Rate 63 Respiratory Rate 16 Respiratory Effort Normal Blood Pressure 155/58 H Blood Pressure Mean 90 Pulse Ox 100 Oxygen Delivery Method Room Air Positive well nourished and well developed; Negative for cachectic, contractures or unkempt General Appearance ED: well developed and NAD; Negative for unkempt, cachectic, contractures or pallor Nutritional Appearance: Negative for cachectic HEENT Reports moist mucous membranes normocephalic and atraumatic; Negative for trauma or tenderness Eyes PERRL and EOMs intact bilaterally General Eye ED: Negative for pale conjunctiva, scleral icterus or other Neck no lymphadenopathy, supple and no JVD General: Negative for tenderness Chest Wall inspection of chest normal and palpation of chest normal Chest: Negative for tenderness Resp normal respiratory effort and clear to auscultation bilaterally Effort and Inspection: Negative for respiratory distress Auscultation: Negative for rales, rhonchi or wheezes Cardio regular rate, regular rhythm, S1 normal heart sound and S2 normal heart sound; Negative for no murmurs Rate: other Other Details: 3/6 systolic ejection murmur. Patient tells me she has a history of a murmur. Peripheral Pulses: pulses 2+ throughout GI normal to inspection, nondistended, normoactive bowel sounds, soft to palpation, non-tender, non-distended and no masses Back/Spine no CVA tenderness and no thoracic nor lumbar tenderness General Back: Negative for CVA tenderness Cervical Spine: Negative for cervical spine tenderness Extremity normal to inspection General Extremety ED: Negative for edema, pulses abnormal or tenderness General Extremity: Negative for edema or pulses abnormal Neuro oriented x3 and CN's II-XII intact bilaterally Sensorium / Orientation: awake, alert, oriented to person, oriented to place and oriented to time; Negative for confused, lethargic or stuporous Motor Exam: strength 5/5 throughout Psych mental status grossly normal Appearance: Negative for unkempt Attitude: No agitated Mood & Affect: Negative for depressed, anxious or tearful Skin no rashes or lesions noted and no wounds General Skin Exam: Negative for jaundice or pallor Rashes: No rashes noted Trauma: Negative for abrasion or laceration MDM MDM MDM Narrative Medical decision making narrative: 88-year-old female no history of cardiac disease has had palpitations and accelerated heart rate over the last several weeks. Denies chest pain. Denies leg swelling. No history of DVT or PE. She does have a history of thyroid disease and is on her medications. Cardiac workup will be done. Currently she is symptom-free and has a normal heart rate in the 80s. Repeat exam patient doing well at 2:59 PM. Heart rate 65 sinus rhythm. Vital signs are stable. Clinically feels and looks well. No change in exam. She is comfortable being discharged home. Follow-up with either her primary care provider or cardiology for an outpatient monitor to see if she is having intermittent abnormal cardiac rhythm but she has not had it the entire time she has been here. History & Record Review Discussion w/independent historian: Patient Additional record(s) reviewed:: Prior inpatient record, Prior outpatient record, Prior ED visit and Prior labs Lab Data Attestation: I reviewed the patient's lab results. Lab results narrative: CBC shows a white count of 7. H&H 11.9 and 40. Platelets 341. Electrolytes show a gap of 1. Normal BUN of 13 creatinine 0.8. Glucose 136. Troponin 8. TSH 0.6. Chest x-ray chronic changes. Labs: Laboratory Results - last 24 hr 04/26/23 13:09 WBC 7.1 RBC 5.24 Hgb 11.9 L Hct 40.4 MCV 77.1 L MCH 22.7 L MCHC 29.5 L RDW Std Deviation 46.5 H RDW Coeff of Rafiq 16.6 H Plt Count 341 MPV 9.5 Immature Gran % (Auto) 0.400 Neut % (Auto) 58.8 Lymph % (Auto) 25.8 [place] % (Auto) 9.0 Eos % (Auto) 5.0 Baso % (Auto) 1.0 Absolute Neuts (auto) 4.2 Absolute Lymphs (auto) 1.84 Nucleated RBC % 0 Sodium 140 Potassium 4.1 Chloride 111 H Carbon Dioxide 28.0 Anion Gap 1 L BUN 13 Creatinine 0.85 Estim Creat Clear Calc 47.23 Est GFR (MDRD) Af Amer 81 Est GFR (MDRD) Non-Af 67 BUN/Creatinine Ratio 15.3 Glucose 136 H Calcium 9.7 Troponin I High Sens 8 TSH 0.62 Radiography Chest X-Ray - ED: 1 View, Read by ED Physician, Normal, Heart, Lungs, Mediastinum, Bony Structures, No Acute Disease and Chronic Changes Diagnostic Testing: Chest x-ray, portable, single view interpreted by myself shows no acute abnormality. Normal cardiac silhouette. Normal mediastinum. Normal lung dominguez. No infiltrates or effusions. No CHF. Rhythm Strip Rhythm Strip: Sinus Rhythm Rate: 80 Ectopy: None EKG Initial EKG: Attestation: I personally reviewed and interpreted this EKG as follows: Interpretation: Sinus Rhythm and No Acute Injury Pattern Comments: Normal sinus rhythm rate 80 no acute signs of HI or ischemia. No dysrhythmia. No A-fib. Discharge Plan Triage Chief Complaint: Palpitations ED Provider: Junior Saunders Dx/Rx/DC Orders Clinical Impression: Heart palpitations Instructions: ED Palpitations Prescriptions: No Action diphenhydramine HCl [Banophen] 25 MG capsule 25 mg PO QHS Patient Comments: anti itch, allergies alum-mag hydroxide-simeth [Mag-Al Plus Extra Strength] 30 ML suspension 15 ml PO Q4H PRN PRN (Reason: Indigestion) Patient Comments: acid reflux fentanyl 12 MCG patch 12 mcg TRANSDERM. Q3D Patient Comments: pain melatonin 5 MG tablet 5 mg PO QHS Patient Comments: sleep aide Ibuprofen [Motrin] 800 MG tablet 800 mg PO DAILY PRN PRN (Reason: Pain) cyanocobalamin (vitamin B-12) 1,000 MCG/ML solution 100 mcg IM Q30D calcium carbonate 500 MG tablet 500 mg PO BIDCM pediatric multivit 22-D3-vit K [Chewable Multivit-A,B,D,E,K,Zn] 1 EACH tablet,chewable 1 ea PO BID Patient Comments: supplement sennosides-docusate sodium [Stool Softener-Stimulant Laxat] 1 TABLET tablet 1 tab PO DAILY Qty: 0 0RF Patient Comments: stool softner oxycodone-acetaminophen 1 TABLET tablet 1 tab PO Q4H PRN PRN (Reason: PAIN) Qty: 30 0RF Patient Comments: pain enoxaparin 30 MG/0.3 ML syringe 30 mg subcut DAILY@0600 Qty: 7 0RF Patient Comments: blood thinner levothyroxine 100 MCG tablet 100 mcg PO DAILY@0600 Qty: 30 0RF Patient Comments: thyroid Primary Care Provider: Salena Boogie Referrals: Adrien De La Garza MD [Med Staff - Active Staff] - As soon as possible Salena Boogie, RN FIRST ASSISTANT-C [Primary Care Provider] - As soon as possible Activity Restrictions/Additional Instructions: Your labs, EKG and chest x-ray all checked out well today. No specific diagnosis. You did not have any abnormal heart rhythm while you are here. You may or may not be having heart palpitations which may be from an abnormal rhythm but we could not diagnose that today because you never had it while you are here. Follow-up with either your primary care provider or one of the magento web developer here at the hospital to have further evaluation and possible outpatient diagnostic cardiac sonographer. Return if you are feeling worse. Disposition Disposition: Home, Self Care
--- NOTE | 2023-04-26 12:57 | RAD_ITS ---
STUDY: X-RAY CHEST REASON FOR EXAM: Female, 88 years old. Chest pain TECHNIQUE: Single AP portable view of the chest. COMPARISON: Comparison is made with prior study dated April 16, 2015. FINDINGS: Hyperinflation. The lungs are clear. There is no demonstrated pleural abnormality. Normal size heart. Normal mediastinum and ankit. Normal visualized pulmonary arteries. There is atherosclerotic calcification of the aortic arch with tortuosity. There are diffuse degenerative changes of the visualized thoracic spine. Normal visualized ribs, clavicles, and shoulders. There is no demonstrated abnormality of the visualized soft tissue structures of the upper abdomen. RAD/Chest 1 View (Portable) IMPRESSION: Hyperinflation. The lungs are clear. Electronically Signed: Emory Harrell MD at 13:17 EST ,
[2023-04-26 13:05] VITALS: PULSE 68; RESP 12; O2SAT 100
[2023-04-26 13:12] LABS: Absolute Lymphocyte Count 1.84 X10^3/uL (0.83-4.51); Absolute Neutrophil Count 4.2 X10^3/uL (2.0-7.7); Basophil# 0.07 X10^3/uL; Eosinophil# 0.36 X10^3/uL; Hematocrit 40.4 % (37-47); Hemoglobin 11.9 g/dL (12.0-15.0); Lymphocyte # 1.84 X10^3/ul (0.83-4.51); Lymphocyte % 25.8 % (19-41); Mean Corp Hgb Conc 29.5 g/dL (32-36); Mean Corpuscular Hgb 22.7 pg (27.0-32.0); Mean Corpuscular Volume 77.1 fL (81-99); Mean Platelet Vol. 9.5 fl (6.2-12.0); Monocyte# 0.64 X10^3/uL; NRBC Flagged by Analyzer 0 % (0-5); Neutrophil % 58.8 % (47-70); Platelet Count 341 K/mm3 (150-450); RBC Distribution Width CV 16.6 % (11.6-14.6); RBC Distribution Width SD 46.5 fl (35.1-43.9); Red Blood Count 5.24 M/mm3 (4.2-5.4); White Blood Count 7.1 K/mm3 (4.4-11.0)
[2023-04-26 13:39] LABS: Anion Gap 1 (5-15); BUN 13 mg/dL (7-18); BUN/Creat Ratio 15.3 RATIO (10-20); Calcium,Total 9.7 mg/dL (8.5-10.1); Chloride 111 mmol/L (98-107); Creatinine, Serum 0.85 mg/dL (0.55-1.02); EST Glomerular Filtration Rate 67 mL/min (>60); Est Glom Filt Rate - Afr Amer 81 mL/min (>60); Estimated Creatinine Clearance 47.23 ml/min; Glucose 136 mg/dL (74-106); Potassium 4.1 mmol/L (3.5-5.1); Sodium Level 140 mmol/L (136-145); Thyroid Stim Hormone (TSH) 0.62 uIU/mL (0.358-3.74); Troponin-I HS 8 pg/mL (3.0-54.0)
--- NOTE | 2023-04-26 14:07 | ED.RN ---
PATIENT ASKING IF SHE CAN CHANGE BACK INTO HER CLOTHES AFTER BLOODWORK AND CHEST X RAY OBTAINED. RN STATES ITS BEST FOR HER TO STAY IN GOWN UNTIL SHE IS DISCHARGED FROM HOSPITAL.
[2023-04-26 14:10] VITALS: BP 155/58; PULSE 63; RESP 16; O2SAT 100
--- NOTE | 2023-04-26 14:14 | ED.RN ---
PATIENT UPSET WITH BLOOD PRESSURE CUFF. PT STATES IT IS TOO TIGHT. RN APOLOGIZED FOR THE PAIN. RN EXPLAINED TO PATIENT IT IS NECESSARY TO OBTAIN A BLOOD PRESSURE AT THIS TIME. RN HAS CHANGED AUTOMATIC TIME FOR BLOOD PRESSURE TO OBTAIN BLOOD PRESSURE EVERY HOUR RATHER THAN EVERY 15 MINUTES. PT STATES I WANTED YOU TO GO INTO LABOR AND HAVE EVERYONE FORGET ABOUT ME. PT STATES I HAVE SOUP AND HAM TO MAKE AT HOME. I DON'T HAVE TIME FOR THIS. RN STATES WE NEED TO RULE OUT ANYTHING LIFE THREATENING THAT COULD BE CAUSING THE CHEST PAIN.
[2023-04-26 15:12] VITALS: BP 188/75; PULSE 63; RESP 16; TEMP 36.2; O2SAT 100
== END 2023-04-26 15:13 | disposition home or self-care (01) ==
PROVIDERS: Emergency Provider Emergency Medicine; PCP Nurse Practitioner Family; Referring Provider Emergency Medicine; Visit Provider Emergency Medicine
DX: R00.2 Palpitations (principal); E03.9 Hypothyroidism, unspecified; Z79.01 Long term (current) use of anticoagulants; Z79.890 Hormone replacement therapy; Z79.899 Other long term (current) drug therapy
CPT/HCPCS: 71045; 80048; 84443; 84484; 85025; 93005; 99284; A4216

== ENCOUNTER → 2023-05-29 | Outpatient (CLI) | payer MEDICARE, SELFPAY | END | disposition home or self-care (01) | LOC: PSN 11:47 | PROVIDERS: PCP Nurse Practitioner Family; Referring Provider Nurse Practitioner Family; Visit Provider Nurse Practitioner Family | DX: R00.2 Palpitations (principal) | CPT/HCPCS: 93225; 93226 ==

== ENCOUNTER → 2023-06-09 | Outpatient (CLI) | payer MEDICARE, SELFPAY ==
--- NOTE | 2023-06-09 12:27 | ECHOD_ITS ---
Reason For Study: PALPS Procedure This was a 2D Doppler, Color Flow transthoracic echocardiogram. Exam performed in department. Left Ventricle Normal LV size. Moderate concentric left ventricular hypertrophy. The left ventricular ejection fraction is 70 %. Diastolic function indeterminant based upon data provided. No tissue Doppler done. Right Ventricle Normal right ventricle. Atria The left and right atria are normal. Mitral Valve There is Severe focal posterior mitral annular calcification. Mild (1+) mitral valve insufficiency. Tricuspid Valve Trivial tricuspid valve insufficiency. Right ventricular systolic pressure estimated to be 41 mmHg. Aortic Valve Moderate focal aortic valve calcification. Mild aortic stenosis. Pulmonic Valve The pulmonic valve is not well visualized. Great Vessels Normal sized aortic root. Pericardium/Pleural No pericardial effusion. MMode/2D Measurements & Calculations LVIDd: 3.9 cm IVSd: 1.3 cm LVOT diam: 1.6 cm LVIDs: 1.6 cm LVPWd: 1.4 cm LVOT area: 1.9 cm2 RVDd: 2.6 cm FS: 59.4 % Ao root diam: 3.2 cm LAV(MOD-bp): 69.0 ml LVAd ap4: 22.4 cm2 LAV(MOD-bp) Indexed: 37.7 ml/m2 LVLd ap4: 6.9 cm LAV(MOD-sp2): 61.3 ml EDV(MOD-sp4): 59.2 ml LAV(MOD-sp4): 64.7 ml EDV(sp4-el): 61.3 ml LVAs ap4: 11.1 cm2 LVLs ap4: 6.2 cm ESV(MOD-sp4): 18.5 ml ESV(sp4-el): 17.0 ml EF(MOD-sp4): 68.8 % EF(sp4-el): 72.2 % SV(MOD-sp4): 40.7 ml SV(sp4-el): 44.3 ml LA A4 area: 22.1 cm2 LA dimension(2D): 3.8 cm RA A4 area: 12.1 cm2 TAPSE: 1.9 cm Time Measurements MV dec time: 0.30 sec Doppler Measurements & Calculations MV E max jose alfredo: 129.3 cm/sec MV V2 max: 164.2 cm/sec MV dec slope: 461.5 cm/sec2 MV A max jose alfredo: 145.3 cm/sec MV max P.8 mmHg MV E/A: 0.89 MV V2 mean: 97.5 cm/sec MV mean P.4 mmHg MV V2 VTI: 54.6 cm MVA(VTI): 1.0 cm2 Ao V2 max: 192.8 cm/sec LV V1 max: 125.8 cm/sec SV(LVOT): 55.1 ml Ao max P.2 mmHg LV V1 max P.3 mmHg Ao V2 mean: 129.9 cm/sec LV V1 mean P.6 mmHg Ao mean P.0 mmHg LV V1 mean: 89.3 cm/sec Ao V2 VTI: 44.4 cm LV V1 VTI: 28.7 cm AV (velocity ratio): 0.65 NIYAH(I,D): 1.2 cm2 NIYAH(V,D): 1.3 cm2 TR max jose alfredo: 288.4 cm/sec TR max P.3 mmHg ECHO/Echo Complete Interpretation Summary Moderate concentric left ventricular hypertrophy. The left ventricular ejection fraction is 70 %. Diastolic function indeterminant based upon data provided. There is Severe focal posterior mitral annular calcification. Mild (1+) mitral valve insufficiency. Right ventricular systolic pressure estimated to be 41 mmHg. Mild aortic stenosis. Ordering Physician: Salena Boogie Referring Physician: Salena Boogie Performed By: Ernestine Jaquez RCS
== END | disposition home or self-care (01) ==
LOC: CVS 12:26
PROVIDERS: PCP Nurse Practitioner Family; Referring Provider Nurse Practitioner Family; Visit Provider Nurse Practitioner Family
DX: R00.2 Palpitations (principal)
CPT/HCPCS: 93306

== ENCOUNTER → 2023-08-04 | Outpatient (CLI) | payer MEDICARE, SELFPAY ==
--- NOTE | 2023-08-04 09:51 | CDU_ITS ---
Reason For Study: RT CAROTID BRUIT Rt. Velocities/BP Lt. Velocities/BP Prox CCA 58.2/10.0 cm/sec. Prox CCA 96.3/18.2 cm/sec. Mid CCA 75.2/13.8 cm/sec. Mid CCA 88.6/18.2 cm/sec. Dist CCA 70.5/12.8 cm/sec. Dist CCA 82.0/18.2 cm/sec. Prox ICA 66.6/9.5 cm/sec. Prox ICA 93.0/19.3 cm/sec. Mid ICA 65.8/12.0 cm/sec. Mid ICA 89.7/18.2 cm/sec. Dist ICA 65.8/18.6 cm/sec. Dist ICA 58.9/17.1 cm/sec. Rt. ICA/CCA = 66.6/75.2=0.9. Lt. ICA/CCA = 93.0/88.6=1.0. Prox ECA 66.6/7.3 cm/sec. Prox ECA 69.9/8.4 cm/sec. Rt. Vert. 30.5/0.0 cm/sec. Lt. Vert. 53.4/11.7 cm/sec. Right Extracranial There is homogeneous, smooth atherosclerotic plaque noted in the right common carotid artery. There is homogeneous, smooth atherosclerotic plaque noted in the right internal carotid artery. There is heterogeneous, irregular atherosclerotic plaque noted in the right external carotid artery. Antegrade flow is noted in the right vertebral artery. Left Extracranial There is homogeneous, smooth atherosclerotic plaque noted in the left common carotid artery. There is heterogeneous, irregular atherosclerotic plaque noted in the left internal carotid artery. There is no significant atherosclerotic plaque noted in the left external carotid artery. Antegrade flow is noted in the left vertebral artery. Procedure Carotid Duplex 10026. This is a Carotid Duplex examination using B-mode, color flow and specral Doppler. Exam performed in department. VL/Carotid Duplex Ultrasound Interpretation Summary Mild (<50%) stenosis right extracranial internal carotid. Mild (<50%) stenosis left extracranial internal carotid. Patent and antegrade vertebrals bilaterally. Ordering Physician: Adrien De La Garza Referring Physician: Salena Boogie Performed By: Magdalena Lombardi RDCS, RVT
== END | disposition home or self-care (01) ==
LOC: CVS 09:49
PROVIDERS: PCP Nurse Practitioner Family; Referring Provider Internal Medicine Cardiovascular Disease; Visit Provider Internal Medicine Cardiovascular Disease
DX: R09.89 Other specified symptoms and signs involving the circulatory and respiratory systems (principal)
CPT/HCPCS: 93880

== ENCOUNTER → 2023-12-13 | Outpatient (CLI) | payer MEDICARE, SELFPAY ==
[2023-12-13 16:10] LABS: Amphetamine Urine VISTA NEGATIVE (<1000 ng/mL); Barbiturate Urine VISTA NEGATIVE (< 200 ng/mL); Benzodiazepine Urine VISTA NEGATIVE (< 200 ng/mL); Cocaine Urine VISTA NEGATIVE (< 300 ng/mL); Ecstacy Urine VISTA NEGATIVE (< 500 ng/mL); Methadone Urine VISTA NEGATIVE (< 300 ng/mL); PCP Urine VISTA NEGATIVE (< 25 ng/mL); THC Urine VISTA NEGATIVE (< 50 ng/mL); Vista UDS pH Range 7
== END | disposition home or self-care (01) ==
LOC: LAB 14:12
PROVIDERS: PCP Nurse Practitioner Family; Referring Provider Anesthesiology Pain Medicine; Visit Provider Anesthesiology Pain Medicine
DX: F11.20 Opioid dependence, uncomplicated (principal)
CPT/HCPCS: 80307

== ENCOUNTER → 2024-11-07 | Outpatient (CLI) | payer MEDICARE, SELFPAY ==
[2024-11-07 10:47] LABS: Hematocrit 42.0 % (37-47); Hemoglobin 13.2 g/dL (12.0-15.0); Immature Granulocytes Count 0.030 X10^3/uL (0.0-0.0); Mean Corp Hgb Conc 31.4 g/dL (32-36); Mean Corpuscular Volume 82.4 fL (81-99); Mean Platelet Vol. 9.1 fl (6.2-12.0); NRBC Flagged by Analyzer 0 % (0-5); Platelet Count 341 K/mm3 (150-450); RBC Distribution Width CV 15.7 % (11.6-14.6); RBC Distribution Width SD 47.3 fl (35.1-43.9); Red Blood Count 5.10 M/mm3 (4.2-5.4); White Blood Count 6.9 K/mm3 (4.4-11.0)
[2024-11-07 11:00] LABS: Glucose, Dipstick Normal (Normal); Ketone-Dipstick Negative (Negative); Leukocyte Esterase-Dipstick 100 /ul (Negative); Nitrite-Dipstick Negative (Negative); Occult Blood-Urine Negative /ul (Negative); Protein-Dipstick 15 mg/dl (Negative); Specific Gravity, Urine 1.015 (1.002-1.030); Urine Bilirubin Dipstick Negative (Negative)
[2024-11-07 11:10] LABS: Color, Urine Yellow (Yellow)
[2024-11-07 11:28] LABS: Creatinine, Urine (random) 91.90 mg/dL (28.00-217.00)
[2024-11-07 11:44] LABS: Microalbumin,Random Urine < 12.0 mg/L (<20 mg/L)
[2024-11-07 12:13] LABS: AST(SGOT) 19 U/L (<=31); Alanine Aminotransfer ALT/SGPT 10 U/L (<=34); Albumin, Serum 3.9 g/dL (3.4-4.8); Alkaline Phosphatase 119 U/L (35-104); Chloride 106 mmol/L (98-108); Iron 49 ug/dL (50-170); Iron Binding Capacity,Total 406 ug/dL (250-450); Iron Binding Capacity,Unsat 357 ug/dL (228-428); Potassium 4.3 mmol/L (3.3-5.1)
[2024-11-07 12:16] LABS: FOLATES,SERUM (FOLIC ACID) 10.40 ng/mL (4.60-34.80)
[2024-11-07 12:19] LABS: Anion Gap 11 (5-15); BUN 14 mg/dL (4-19); BUN/Creat Ratio 16.4 RATIO (10-20); Calcium,Total 9.4 mg/dL (7.6-11.0); Carbon Dioxide 24.3 mmol/L (21.0-32.0); Cholesterol 149 mg/dL (<=200); Ferritin 16 ng/mL (22-378); Globulin 3.1 g/dL (2.2-4.2); Glucose 105 mg/dL (70-99); Low Density Lipoprotein Calc. 71 mg/dL; Triglycerides 120 mg/dL; Very Low Density Lipoprotein 24 mg/dL (5-40); Vitamin B12 452 pg/mL (180-914); Vitamin D,25 Hydroxy 53.8 ng/mL (30-100); cholesterol:hdl ratio screen 2.74
[2024-11-11 10:08] LABS: Vitamin B1, Thiamine 91.4 nmol/L (66.5-200.0)
== END | disposition home or self-care (01) ==
LOC: PAVLAB 10:18
PROVIDERS: PCP Nurse Practitioner Family; Referring Provider Nurse Practitioner Family; Visit Provider Nurse Practitioner Family
DX: E03.9 Hypothyroidism, unspecified (principal); E55.9 Vitamin D deficiency, unspecified; D50.9 Iron deficiency anemia, unspecified; E78.5 Hyperlipidemia, unspecified; D51.8 Other vitamin B12 deficiency anemias; Z98.84 Bariatric surgery status; R73.01 Impaired fasting glucose
CPT/HCPCS: 36415; 80053; 80061; 81002; 82043; 82306; 82570; 82607; 82728; 82746; 83540; 83550; 84425; 84443; 85025